=== PATIENT | male | born 1995 | race Two or more races ===

== ENCOUNTER 2020-12-28 14:25 | Emergency (ER) | payer BC, OTHER ==
[~2020-12-28] VITALS: Ht 177.8 cm; Wt 74.8 kg
[2020-12-28 14:35] VITALS: BP 122/78
[2020-12-28 15:18] LABS: Alanine Aminotransferase 23 U/L (16-61); Albumin 4.2 g/dL (3.4-5.0); Anion Gap 6 (5-15); Aspartate Aminotransferase 13 U/L (15-37); BUN/Creatinine Ratio 15.6; Blood Urea Nitrogen 14 mg/dL (7-18); Calcium 8.9 mg/dL (8.5-10.1); Carbon Dioxide 26 mmol/L (21-32); Chloride 109 mmol/L (98-107); GFR African American 134 mL/min; GFR Non-African American 111 mL/min; Glucose 85 mg/dL (74-106); Potassium 3.5 mmol/L (3.5-5.1); Sodium 141 mmol/L (136-145)
[2020-12-28 15:23] LABS: Alkaline Phosphatase 59 U/L (45-117); Bilirubin, Total 1.1 mg/dL (0.2-1.0); Total Protein 7.8 g/dL (6.4-8.2)
[2020-12-28 15:34] LABS: Basophils # (auto) 0.1 10 ^3/uL (0-0.2); Basophils % (auto) 1.8 % (0.0-2.0); Eosinophils # (auto) 0.1 10 ^3/uL (0-0.8); Eosinophils % (auto) 1.5 % (0.0-7.0); Hematocrit 48.2 % (41.0-53.0); Hemoglobin 16.6 g/dL (13.5-17.5); Lymphocytes % (auto) 49.6 % (10.0-50.0); Mean Corpuscular Hemoglobin 29.4 pg (28.0-32.0); Mean Corpuscular Hgb Conc. 34.4 g/dL (32.0-36.0); Mean Corpuscular Volume 85.6 fL (80.0-100.0); Monocytes # (auto) 0.4 10 ^3/uL (0-1.3); Monocytes % (auto) 8.8 % (0.0-12.0); Neutrophils # (auto) 1.5 10 ^3/uL (1.6-8.6); Neutrophils % (auto) 38.3 % (37.0-80.0); Nucleated Red Blood Cells % 0.2 %; Red Blood Cells 5.63 10^6/uL (4.5-5.90); Red Cell Distribution Width 12.7 % (11.8-14.3)
== END 2020-12-28 22:05 | disposition home or self-care (01) ==
LOC: ER 14:27
DX: R07.89 Other chest pain (principal)
CPT/HCPCS: 36415; 71046; 80053; 84484; 85025; 93005